=== PATIENT | male | born 1960 | race Caucasian/White ===

== ENCOUNTER 2016-09-22 14:15 | Emergency (ER) | payer BC, OTHER ==
[~2016-09-22] VITALS: Ht 180.3 cm; Wt 83.0 kg
[~2016-09-22 14:15] MED LIST: AMPICILLIN TRI500 MG PO; LOVENOX80 MG/0.8 SC; MACRODANTIN25 MG PO; MYRBETRIQ50 MG PO; TOLTERODINE TART4 MG PO; VALSARTAN160 MG PO; WARFARIN SODIUM10 MG PO; XARELTO20 MG PO
[2016-09-22] MEDS ORDERED: CLOBETASOL PROP60 GM TP (15:31)
[2016-09-22] MEDS ORDERED: VIAGRA100 MG PO (15:32)
[2016-09-22 16:50] VITALS: BP 138/79
== END 2016-09-22 16:51 | disposition home or self-care (01) ==
LOC: EME 14:15
DX: R23.8 Other skin changes (principal); D68.51 Activated protein C resistance; Z86.718 Personal history of other venous thrombosis and embolism; I10 Essential (primary) hypertension; Z79.01 Long term (current) use of anticoagulants
CPT/HCPCS: 93971; 99281; 99283